=== PATIENT | male | born 1995 | race Caucasian/White ===

== ENCOUNTER 2017-11-08 21:25 | Emergency (ER) | payer BC ==
--- NOTE | 2017-11-08 21:59 | UC ---
Skin Complaint HPI - HPI Summary HPI Summary: sudden onset this evening of a full body rash that if painful/tender --unknown exposure- - History of Current Complaint Chief Complaint: [facility] Time Seen by Provider: 11/08/17 21:45 Stated Complaint: BODY RASH/DIZZINESS Hx Obtained From: Patient Onset/Duration: Sudden Onset Timing: Constant Onset Severity: Moderate Current Severity: Moderate Location: Diffuse Aggravating Factor(s): Touch Alleviating Factor(s): Nothing Associated Signs & Symptoms: Positive: Rash - Allergy/Home Medications Allergies/Adverse Reactions: Allergies Allergy/AdvReac Type Severity Reaction Status Date / Time No Known Allergies Allergy Verified 11/08/17 21:39 Home Medications: Home Medications NK [No Home Medications Reported] 11/08/17 [History Confirmed 11/08/17] Review of Systems Constitutional: Negative Skin: Rash Eyes: Negative ENT: Negative Respiratory: Negative Cardiovascular: Negative Gastrointestinal: Negative Genitourinary: Negative Motor: Negative Neurovascular: Negative Musculoskeletal: Negative Neurological: Negative Psychological: Negative Is Patient Immunocompromised?: No All Other Systems Reviewed And Are Negative: Yes PMH/Surg Hx/FS Hx/Imm Hx Previously Healthy: Yes - Social History Occupation: Student Lives: Dormitory/Roommates Alcohol Use: None Substance Use Type: None Smoking Status (MU): Never Smoked Tobacco Physical Exam Triage Information Reviewed: Yes Appearance: Well-Nourished, Ill-Appearing, Pain Distress Vital Signs Reviewed: Yes Eye Exam: Normal Eyes: Positive: Conjunctiva Clear ENT Exam: Normal ENT: Positive: Normal ENT inspection, Hearing grossly normal. Negative: Nasal congestion, Nasal drainage, Trismus, Muffled voice, Hoarse voice Dental Exam: Normal Neck exam: Normal Neck: Positive: Supple, Nontender, No Lymphadenopathy Respiratory Exam: Normal Respiratory: Positive: Chest non-tender, Lungs clear, Normal breath sounds, No respiratory distress, No accessory muscle use Cardiovascular Exam: Normal Cardiovascular: Positive: RRR, No Murmur, Pulses Normal, Brisk Capillary Refill Abdominal Exam: Normal Abdomen Description: Positive: Nontender, No Organomegaly, Soft Musculoskeletal Exam: Normal Neurological Exam: Normal Neurological: Positive: Alert, Muscle Tone Normal, Fatigued Psychological Exam: Normal Skin Exam: Other Skin: Positive: Other - sore tender blanching erythemic Course/Dx - Course Course Of Treatment: reviewed case with Dr. Vargas--will send patient to ED at [facility] for further assessment and treatment - Diagnoses Provider Diagnoses: allergic reaction Discharge - Sign-Out/Discharge Documenting (check all that apply): Patient Departure All imaging exams completed and their final reports reviewed: No Studies - Discharge Plan Condition: Good Disposition: HOME-RECOMMEND TO ED Patient Education Materials: Urticaria (ED) Referrals: No Primary Care Phys,NOPCP [Primary Care Provider] - Additional Instructions: we are discharging you to the emergency department at [facility] for further treatment - Billing Disposition and Condition Condition: GOOD Disposition: Home-Recommend to ED
[2017-11-08 22:00] VITALS: BP 112/53
--- NOTE | 2017-11-09 09:55 | UC ---
Discharge - Sign-Out/Discharge Documenting (check all that apply): Post-Discharge Follow Up All imaging exams completed and their final reports reviewed: No Studies - Discharge Plan Condition: Good Disposition: HOME-RECOMMEND TO ED Patient Education Materials: Urticaria (ED) Referrals: No Primary Care Phys,NOPCP [Primary Care Provider] - Additional Instructions: we are discharging you to the emergency department at [facility] for further treatment - Billing Disposition and Condition Condition: GOOD Disposition: Home-Recommend to ED
== END 2017-11-08 22:20 | disposition home health service (06) ==
LOC: UCCORT 21:25
DX: R21 Rash and other nonspecific skin eruption (principal); T78.40XA Allergy, unspecified, initial encounter; X58.XXXA Exposure to other specified factors, initial encounter
CPT/HCPCS: 99202; G0463